=== PATIENT | male | born 1935 | race Caucasian/White ===

== ENCOUNTER 2020-04-26 18:10 | Emergency (ER) | payer MEDICARE, BC ==
[2020-04-26] MEDS ORDERED: Sodium Chloride 0.9% 2.5 ML Syringe FLUSH PRN ×2 (19:11)
[2020-04-26] MEDS ORDERED: Sodium Chloride 0.9% 10 ML Syringe FLUSH PRN (19:11)
[2020-04-26] MEDS ORDERED: Sodium Chloride 0.9% 1,000 ML IV ONE (19:11)
[2020-04-26] MEDS ORDERED: Ondansetron 4 MG/2 ML SDV IVPUSH ONE (19:13)
[2020-04-26] MEDS ORDERED: Amiodarone 150 MG in Dextrose 5% in Water 100 ML IV ONE ×2 (20:19)
[2020-04-26 20:21] LABS: BLOOD UREA NITROGEN,BUN 45 mg/dL (7.0-18.0); CARBON DIOXIDE,CO2 26.3 mmol/L (21.0-32.0); CHLORIDE,CL 102 mmol/L (98-107); GLUCOSE RANDOM 158 mg/dL (74-106); LIPASE 91 U/L (73-393); POTASSIUM,K 3.1 mmol/L (3.5-5.1); SODIUM,NA 143 mmol/L (136-148)
[2020-04-26] MEDS ORDERED: Morphine 4 MG/ML Syringe IVPUSH ONE (20:22)
[2020-04-26] MEDS ORDERED: Morphine 4 MG/ML Syringe ONE (20:23)
[2020-04-26] MEDS ORDERED: Lidocaine 4% Top Soln 50 ML Bottle MUCMEM ONE (20:24)
[2020-04-26] MEDS ORDERED: Benzocaine 20% Topical Spray UD MUCMEM ONE (21:42)
[2020-04-26] MEDS ORDERED: Iopamidol 755 Mg/ML 100 ML Bottle IVPUSH STA (21:44)
[2020-04-26] MEDS ORDERED: Lidocaine 2% Viscous Solution 15 ML Cup ONE (21:49)
--- NOTE | 2020-04-26 22:30 | CT ---
INDICATION: Abdominal pain. COMPARISON: None available TECHNIQUE: CT examination of the abdomen and pelvis was performed with the uneventful intravenous administration of 100 cc of Isovue 370 while 3 mm thick axial sections were obtained from the lung bases through the pubic symphysis. Oral contrast was not administered. Please note that all CT scans at this facility use dose modulation, iterative reconstruction, and/or weight-based dosing when appropriate to reduce radiation dose to as low as reasonably achievable. FINDINGS: There is massive dilatation of the colon extending to a moderate sized left inguinal hernia containing a nondistended loop of sigmoid colon. The colon proximal to the hernia is prominently distended, with the sigmoid colon distal to the hernia collapsed. The findings are that high grade distal colonic obstruction by the hernia. There is no sign of free air or free fluid in the abdomen or pelvis to suggest perforation. Interestingly, the small bowel is nondistended. There is also a small right inguinal hernia containing fluid and fat, but no loops of bowel. In the abdomen, the liver has a 1.4 centimeter anterior subcapsular cyst in the inferior lateral segment of the left lobe, segment 3. The rest of the liver is normal in appearance. The spleen, pancreas, and adrenals are normal in appearance. A few small cysts are present in both kidneys. The kidneys are otherwise normal in appearance. The gallbladder appears to be absent, consistent with cholecystectomy. The abdominal aorta is normal in caliber with no sign of dilatation. There is no sign of retroperitoneal mass or adenopathy. The stomach, loops of small bowel, and colon in the abdomen are normal in appearance. In the pelvis, the appendix is nonvisualized, but there is no sign of an inflammatory process in the area of the appendix. The loops of small bowel in the pelvis are normal in appearance. The prostate is normal in appearance. The urinary bladder is normal in appearance. There is no sign of pelvic or inguinal mass or adenopathy. There is moderate consolidation of the posterior lung bases associated with moderate eventration of both hemidiaphragms. There is a densely calcified granuloma in the anterior-medial subpleural right middle lobe at the lung base. The heart is mildly enlarged. Sternal wires are present from median sternotomy. There is heavy triple-vessel coronary calcification. There is mild scoliosis of the lumbar spine convex towards the left. There is mild anterior wedging of T11 through L1, mild compression fractures versus anatomic variant. There is moderate L4-5 and prominent L5-S1 disc degenerative disease. There is moderate L3-4 disc degenerative disease as well. There is moderate disc degenerative disease throughout the inferior thoracic spine. IMPRESSION: Findings of high-grade distal colonic obstruction produced by a moderate-sized left inguinal hernia containing a nondistended loop of sigmoid colon. The distal sigmoid colon is nondistended. Interestingly, the small bowel is nondistended. CT of the abdomen shows absence of the gallbladder consistent with cholecystectomy. CT of the pelvis shows a small right inguinal hernia containing fat and fluid with no loops of bowel. Moderate posterior basilar atelectasis associated with moderate eventration of both hemidiaphragms. Mild cardiomegaly. Please note that all CT scans at this facility use dose modulation, iterative reconstruction, and/or weight-based dosing when appropriate to reduce radiation dose to as low as reasonably achievable. Dictated by Familia Blas MD @ Apr 26 2020 10:18PM Signed by Dr. Familia Blas @ Apr 26 2020 10:29PM
--- NOTE | 2020-04-26 22:39 | CR ---
INDICATION: NG tube placement TECHNIQUE: Chest 2 views. COMPARISON: None FINDINGS: The heart is normal in size. The pulmonary vasculature is within normal limits. An enteric tube tip projects over the right mainstem bronchus. There are postsurgical changes of median sternotomy. Marked dilated loops of bowel are seen within the partially visualized upper abdomen. IMPRESSION: Enteric tube within the right mainstem bronchus. Marked dilated loops of bowel partially visualized within the upper abdomen. Findings were discussed with Dr. Rivera at 10:35 p.m. on 04/26/2020. The enteric tube has already been removed. Dictated by Tarsha Millard MD @ 04/26/2020 10:35:57 PM Dictated by: Tarsha Millard MD @ 04/26/2020 22:37:30 (Electronically Signed)
--- NOTE | 2020-04-26 23:08 | CR ---
Indication: Intubation Technique: Chest 1 view Comparison: April 26, 2020 at 10:09 p.m. Findings/Impression: Endotracheal tube tip terminates at the level of the crystal and should be retracted. A gastric tube tip terminates at the level of mid stomach. There are multiple air-filled loops of colon in the upper abdomen. No free air is identified. Stable cardiac size. Status post median sternotomy. Lung volumes are low. Calcified granulomata in the right lung. No pneumothorax or significant effusion. Dictated by Itzel Montague MD @ Apr 26 2020 11:04PM Signed by Dr. Itzel Montague @ Apr 26 2020 11:05PM
[2020-04-26] MEDS ORDERED: Aspirin 300 MG Supp ONE (23:11)
--- NOTE | 2020-04-26 23:12 | CR ---
INDICATION: Intubation. TECHNIQUE: Portable AP upright chest at 2209 hours. COMPARISON: 2108 hours. IMPRESSION: The enteric tube which was previously seen extending into the right mainstem bronchus been withdrawn and repositioned. The tip of the tube is now in expected location of the gastroesophageal junction. This should be advanced. An endotracheal tube is not definitely identified despite the provided history. Remainder of the exam is unchanged. Dictated by Jose Martinez MD @ 04/26/2020 11:09:58 PM Dictated by: Jose Martinez MD @ 04/26/2020 23:10:05 (Electronically Signed)
[2020-04-26] MEDS ORDERED: Aspirin 300 MG Supp RECTAL SCH (23:15)
[2020-04-26] MEDS ORDERED: Sodium Chloride 0.9% 1,000 ML IV SCH (23:15)
--- NOTE | 2020-04-26 23:20 | EDM.PDOC ---
ED HPI GENERAL MEDICAL PROBLEM - General Chief Complaint: Gastrointestinal Problem Stated Complaint: abdominal distention Time Seen by Provider: 04/26/20 20:15 - History of Present Illness INITIAL COMMENTS - FREE TEXT/NARRATIVE: History of present illness: Patient presents with a distended abdomen since yesterday. Patient comes from a intermediate we had very little report from the patient is complaining of feeling very bloated and uncomfortable with abdominal pain he did have some vomiting apparently earlier he also has noted when we get into the room to be having runs of V. tach on the monitor he states he has a hernia that had given him trouble in the past he has Parkinson's and has dementia and is a difficult historian although he is alert oriented to person and place and able to answer questions. Review of systems: As per history of present illness and below otherwise all systems reviewed and negative. Past medical history: As per history of present illness and as reviewed below otherwise noncontributory. Surgical history: As per history of present illness and as reviewed below otherwise noncontributory. Social history: No reported history of drug or alcohol abuse. Family history: As per history of present illness and as reviewed below otherwise noncontributory. Physical exam: HEENT: Atraumatic, normocephalic, pupils reactive, negative for conjunctival pallor or scleral icterus, mucous membranes moist, throat clear, neck supple, nontender, trachea midline. Lungs: Clear to auscultation, breath sounds equal bilaterally, chest nontender. Heart: S1S2, regular, negative for clicks, rubs, or JVD. Abdomen: Very distended tympanic abdomen consistent with a high-grade bowel obstruction. It is diffusely tender to palpation.. Negative for masses or hepatosplenomegaly. Negative for costovertebral tenderness. Pelvis: Stable nontender. Genitourinary: There is a right inguinal hernia present Rectal: Deferred. Extremities: Atraumatic, negative for cords or calf pain. Neurovascular unremarkable. Neuro: Awake, alert, oriented. Cranial nerves II through XII unremarkable. Cerebellum unremarkable. Motor and sensory unremarkable throughout. Exam nonfocal. Diagnostics: [] Therapeutics: [] Impression: Bowel obstruction, tachydysrhythmia [] Plan: Patient will undergo lab studies a CT down and pelvis manipulation of the hernia will be attempted medication for pain and stabilization of his ta chydysrhythmia will be done including a cardiac work-up. [] Definitive disposition and diagnosis as appropriate pending reevaluation and review of above. Abdomen Pain Score (Numeric/FACES): 2 - Related Data Allergies Allergy/AdvReac Type Severity Reaction Status Date / Time atorvastatin Allergy Other Verified 04/26/20 18:44 fluticasone [From Flonase] Allergy Other Verified 04/26/20 18:44 fluvastatin Allergy Other Verified 04/26/20 18:44 niacin Allergy Muscle Verified 04/26/20 18:44 Weakness simvastatin Allergy Chest Pain Verified 04/26/20 18:44 tamsulosin Allergy Other Verified 04/26/20 18:44 Home Meds: Home Meds Latanoprost [Xalatan 0.005% Ophth Soln] 1 drop EYEBOTH BEDTIME 09/26/16 [History] Lisinopril 40 mg PO DAILY 09/26/16 [History] Metoprolol Tartrate 12.5 mg PO BID 09/26/16 [History] Multivitamin [Multivitamins] 1 each PO DAILY 09/26/16 [History] Nitroglycerin 9 mg PO Q12HR 09/26/16 [History] Nitroglycerin [Nitrostat] 0.4 mg SL Q5M PRN MDD 3 TABLETS 09/26/16 [History] amLODIPine Besylate [Amlodipine Besylate] 5 mg PO DAILY 09/26/16 [History] Lovastatin 20 mg PO BEDTIME 09/28/16 [History] Acetaminophen [Pain Reliever] 500 mg PO Q4H PRN 11/22/16 [History] Aspirin [Ecotrin EC] 81 mg PO DAILY 11/22/16 [History] Bisacodyl [Biscolax] 10 mg RC Q24H PRN 11/22/16 [History] Calcium Carbonate/Vitamin D3 [Calcium 600 + Vit D Tablet] 1 tab PO DAILY 11/22/16 [History] Carboxymethylcellulose Sodium [Refresh Tears] 1 drop EYEBOTH QID PRN 11/22/16 [History] Finasteride 5 mg PO BEDTIME 11/22/16 [History] Levothyroxine 37.5 mcg PO ACBREAKFAST 11/22/16 [History] Mag Hydrox/Aluminum Hyd/Simeth [Maalox Maximum Strength Susp] 30 ml PO ASDIRECTED PRN 11/22/16 [History] Magnesium Hydroxide [Milk of Magnesia] 30 ml PO DAILY PRN 11/22/16 [History] Na Phos,M-B/Na Phos,DI-B [Fleet Enema] 133 ml RC ASDIRECTED PRN 11/22/16 [History] Phenyleph/Shark Tuyet.oil/Mo/Pet [Hemorrhoidal Ointment] 1 applic RC ASDIRECTED PRN 11/22/16 [History] Psyllium Husk [Metamucil] 2 tbsp PO BID 11/22/16 [History] Sennosides [Senna] 8.6 mg PO BID 11/22/16 [History] polyethylene glycoL 3350 [Miralax] 17 gm PO DAILY 11/22/16 [History] witch Jimym [Tucks] 1 each TP ASDIRECTED PRN 11/22/16 [History] Past Medical History HEENT History: Reports: Glaucoma Cardiovascular History: Reports: Hypertension, Stents Respiratory History: Reports: None Gastrointestinal History: Reports: Chronic Constipation Genitourinary History: Reports: Prostate Disorder Musculoskeletal History: Reports: None Neurological History: Reports: Other (See Below) Other Neuro History: Confusion Psychiatric History: Reports: Anxiety, Depression Endocrine/Metabolic History: Reports: Hypothyroidism Hematologic History: Reports: None Oncologic (Cancer) History: Reports: Prostate Dermatologic History: Reports: None - Infectious Disease History Infectious Disease History: Reports: None - Past Surgical History Cardiovascular Surgical History: Reports: Coronary Artery Bypass Social & Family History - Family History Family Medical History: Unobtainable - Tobacco Use Smoking Status *Q: Never Smoker Second Hand Smoke Exposure: No - Caffeine Use Caffeine Use: Reports: None - Recreational Drug Use Recreational Drug Use: No ED ROS GENERAL - Review of Systems Review Of Systems: See Below ED EXAM, GENERAL - Physical Exam Exam: See Below EKG INTERPRETATION EKG Interpretation Comments: Normal sinus rhythm rate of 80 bpm wide-complex QRS with ventricular trigeminy nonspecific ST-T changes grossly abnormal EKG. there are several areas of inconsistent ST segment elevation but no clear reciprocal change Course - Vital Signs Text/Narrative:: Patient was initially brought back after being in the waiting room for some time on quick examination it was noted when nursing called me and that he was having runs of V. tach. We initiated a bolus dose of amiodarone and this seemed to stabilize. On gross exam it was noted that he had a widely distended abdomen orders for pain medication and NG tube were obtained a CT of the abdomen was obtained owing a left inguinal hernia as a cause of high-grade bowel obstruction. Patient was soon manipulated and the hernia was palpably reduced however the abdomen did not significantly reduce and distention immediately. I discussed the complications that the patient was having with his sister who is power of erisa attorney as well as with the patient and they would like intervention if necessary for both the heart condition and the potential surgical problem with his bowel obstruction. Discussed the case with Dr. Ash at approximately 10:30 PM I then subsequently discussed the case with Dr. Lake at 10:40 PM and they agree that with these complications the patient should be transferred to [place]. At 11 PM this case with Dr. Dee at [place] [facility] they will accept the patient. Critical care 38 minutes for acute bowel obstruction with unstable vital signs and abnormal ventricular dysrhythmias. This included initial assessment initiation of antidysrhythmic's also included reassessment of the patient fluid resuscitation maintenance fluids reassessment of patient multiple conversations with consultants and family members does not include separately billable procedures. Last Recorded V/S: Last Vital Signs Temp 37.2 C 04/26/20 18:38 Pulse 80 04/26/20 18:38 Resp 20 04/26/20 18:38 BP 153/91 H 04/26/20 18:38 Pulse Ox 94 L 04/26/20 18:38 - Orders/Labs/Meds Orders: Active Orders 24 hr Category Date Time Status EKG 12 Lead [EKG Documentation Completion] [RC] STAT Care 04/26/20 19:12 Active Gastrointestinal Tube Mgmt [RC] ASDIRECTED Care 04/26/20 20:23 Active CORONAVIRUS COVID-19 RAPID [MOLEC] Stat Lab 04/26/20 22:39 Received UA RFX MANISH AND CULT IF INDIC [URIN] Stat Lab 04/26/20 19:11 Ordered Amiodarone In Dextrose,Iso-Osm [Nexterone in Dextrose Med 04/26/20 23:15 Active 360 MG/200 ML] 360 mg in 200 ml IV ASDIRECTED Aspirin Med 04/26/20 23:15 Active 300 mg RECTAL DAILY Sodium Chloride 0.9% [Normal Saline] 1,000 ml Med 04/26/20 23:15 Active IV ASDIRECTED Sodium Chloride 0.9% [Saline Flush] Med 04/26/20 19:11 Active 10 ml FLUSH ASDIRECTED PRN Sodium Chloride 0.9% [Saline Flush] [facility] 04/26/20 19:11 Active 2.5 ml FLUSH ASDIRECTED PRN Sodium Chloride 0.9% [Saline Flush] [facility] 04/26/20 19:11 Active 2.5 ml FLUSH ASDIRECTED PRN NG [Nasogastric Orogastric Tube Insertion] [OM.PC] Stat Ot 04/26/20 20:22 Ordered Saline Lock Insert [OM.PC] Stat [facility] 04/26/20 19:11 Ordered Medication Orders Aspirin (Aspirin) 300 mg RECTAL DAILY REINALDO Amiodarone HCl/Dextrose (Nexterone In Dextrose 360 Mg/200 Ml) 360 mg in 200 mls @ 33.333 mls/hr IV ASDIRECTED REINALDO; Protocol Sodium Chloride (Normal Saline) 1,000 mls @ 100 mls/hr IV ASDIRECTED REINALDO Sodium Chloride (Saline Flush) 2.5 ml FLUSH ASDIRECTED PRN PRN Reason: Keep Vein Open Sodium Chloride (Saline Flush) 10 ml FLUSH ASDIRECTED PRN PRN Reason: Keep Vein Open Sodium Chloride (Saline Flush) 2.5 ml FLUSH ASDIRECTED PRN PRN Reason: Keep Vein Open Labs: Laboratory Tests 04/26/20 04/26/20 04/26/20 Range/Units 19:50 19:50 22:52 WBC 11.20 H (4.0-11.0) K/uL RBC 4.45 L (4.50-5.90) M/uL Hgb 13.7 (13.0-17.0) g/dL Hct 41.0 (38.0-50.0) % MCV 92.1 (80.0-98.0) fL MCH 30.8 (27.0-32.0) pg MCHC 33.4 (31.0-37.0) g/dL RDW Std Deviation 43.2 (28.0-62.0) fl RDW Coeff of [place]ney 13 (11.0-15.0) % Plt Count 162 (150-400) K/uL MPV 10.80 (7.40-12.00) fL Neut % (Auto) 87.1 H (48.0-80.0) % Lymph % (Auto) 6.1 L (16.0-40.0) % [place] % (Auto) 6.8 (0.0-15.0) % Eos % (Auto) 0.0 (0.0-7.0) % Baso % (Auto) 0.0 (0.0-1.5) % Neut # (Auto) 9.8 H (1.4-5.7) K/uL Lymph # (Auto) 0.7 (0.6-2.4) K/uL [place] # (Auto) 0.8 (0.0-0.8) K/uL Eos # (Auto) 0.0 (0.0-0.7) K/uL Baso # (Auto) 0.0 (0.0-0.1) K/uL Nucleated RBC % 0.0 /100WBC Nucleated RBCs # 0 K/uL Lactate 1.9 (0.20-2.00) mmol/L Sodium 143 (136-148) mmol/L Potassium 3.1 L (3.5-5.1) mmol/L Chloride 102 (98-107) mmol/L Carbon Dioxide 26.3 (21.0-32.0) mmol/L BUN 45 H (7.0-18.0) mg/dL Creatinine 1.1 (0.8-1.3) mg/dL Est Cr Clr Drug Dosing 38.30 mL/min Estimated GFR (MDRD) > 60.0 ml/min Glucose 158 H (74-106) mg/dL Calcium 11.7 H (8.5-10.1) mg/dL Total Bilirubin 1.8 H (0.2-1.0) mg/dL AST 39 H (15-37) IU/L ALT 28 (14-63) IU/L Alkaline Phosphatase 94 (46-116) U/L Troponin I 0.154 H* (0.000-0.056) ng/mL Total Protein 8.1 (6.4-8.2) g/dL Albumin 5.0 (3.4-5.0) g/dL Globulin 3.1 (2.6-4.0) g/dL Albumin/Globulin Ratio 1.6 (0.9-1.6) Lipase 91 (73-393) U/L Meds: Medications Generic Name Dose Route Start Last Admin Trade Name Freq PRN Reason Stop Dose Admin Aspirin 300 mg 04/26/20 23:15 Aspirin RECTAL DAILY REINALDO Amiodarone HCl/Dextrose 360 mg in 200 mls @ 33.333 mls/hr 04/26/20 23:15 Nexterone In Dextrose 360 Mg/200 Ml IV ASDIRECTED REINALDO Protocol 1 MG/MIN Sodium Chloride 1,000 mls @ 100 mls/hr 04/26/20 23:15 Normal Saline IV ASDIRECTED REINALDO Sodium Chloride 2.5 ml 04/26/20 19:11 Saline Flush FLUSH ASDIRECTED PRN Keep Vein Open Sodium Chloride 10 ml 04/26/20 19:11 Saline Flush FLUSH ASDIRECTED PRN Keep Vein Open Sodium Chloride 2.5 ml 04/26/20 19:11 Saline Flush FLUSH ASDIRECTED PRN Keep Vein Open Discontinued Medications Generic Name Dose Route Start Last Admin Trade Name Sai PRN Reason Stop Dose Admin Aspirin Confirm 04/26/20 23:11 Aspirin Administered 04/26/20 23:12 Dose 300 mg .ROUTE .STK-MED ONE Benzocaine Confirm 04/26/20 21:42 Hurricaine One 20% Administered 04/26/20 21:43 Dose 2 each MUCMEM .STK-MED ONE Sodium Chloride 1,000 mls @ 999 mls/hr 04/26/20 19:11 04/26/20 20:09 Normal Saline IV 04/26/20 20:11 999 mls/hr BOLUS ONE Administration Amiodarone HCl 150 mg/ 103 mls @ 600 mls/hr 04/26/20 20:19 Dextrose/Water IV 04/26/20 20:29 .BOLUS ONE Iopamidol 100 ml 04/26/20 21:44 04/26/20 21:45 Isovue-370 (76%) IVPUSH 04/26/20 21:45 100 ml ONETIME STA Administration Lidocaine HCl 10 ml 04/26/20 20:24 Xylocaine 4% Top Soln MUCMEM 04/26/20 20:25 ONETIME ONE Lidocaine HCl Confirm 04/26/20 21:49 Xylocaine 2% Viscous Administered 04/26/20 21:50 Dose 15 ml .ROUTE .STK-MED ONE Morphine Sulfate 4 mg 04/26/20 20:22 04/26/20 20:37 Morphine IVPUSH 04/26/20 20:23 4 mg ONETIME ONE Administration Morphine Sulfate Confirm 04/26/20 20:23 04/26/20 20:37 Morphine Administered 04/26/20 20:24 Not Given Dose 4 mg .ROUTE .STK-MED ONE Ondansetron HCl 4 mg 04/26/20 19:13 04/26/20 20:09 Zofran IVPUSH 04/26/20 19:14 4 mg ONETIME ONE Administration Departure - Departure Time of Disposition: 23:21 Disposition: DC/Tfer to Acute Hospital 02 Condition: Fair Clinical Impression: Bowel obstruction, Inguinal hernia, Ventricular tachycardia, Elevated troponin - Discharge Information *PRESCRIPTION DRUG MONITORING PROGRAM REVIEWED*: Not Applicable *COPY OF PRESCRIPTION DRUG MONITORING REPORT IN PATIENT [place]: Not Applicable Instructions: Inguinal Hernia, Adult, [id number], Bowel Obstruction, [id number] Referrals: PCP,None [Primary Care Provider] - Forms: ED Department Discharge Sepsis Event Note (ED) - Evaluation Sepsis Screening Result: No Definite Risk - Focused Exam Vital Signs: Vital Signs Temp Pulse Resp BP Pulse Ox 04/26/20 18:38 37.2 C 80 20 153/91 H 94 L - My Orders Last 24 Hours: My Active Orders 04/26/20 19:11 UA RFX MANISH AND CULT IF INDIC [URIN] Stat Sodium Chloride 0.9% [Saline Flush] 10 ml FLUSH ASDIRECTED PRN Sodium Chloride 0.9% [Saline Flush] 2.5 ml FLUSH ASDIRECTED PRN Sodium Chloride 0.9% [Saline Flush] 2.5 ml FLUSH ASDIRECTED PRN Saline Lock Insert [OM.PC] Stat 04/26/20 19:12 EKG 12 Lead [EKG Documentation Completion] [RC] STAT 04/26/20 20:22 NG [Nasogastric Orogastric Tube Insertion] [OM.PC] Stat 04/26/20 20:23 Gastrointestinal Tube Mgmt [RC] ASDIRECTED 04/26/20 22:39 CORONAVIRUS COVID-19 RAPID [MOLEC] Stat 04/26/20 23:15 Amiodarone In Dextrose,Iso-Osm [Nexterone in Dextrose 360 MG/200 ML] 360 mg in 200 ml IV ASDIRECTED Aspirin 300 mg RECTAL DAILY Sodium Chloride 0.9% [Normal Saline] 1,000 ml IV ASDIRECTED - Assessment/Plan Last 24 Hours: My Active Orders 04/26/20 19:11 UA RFX MANISH AND CULT IF INDIC [URIN] Stat Sodium Chloride 0.9% [Saline Flush] 10 ml FLUSH ASDIRECTED PRN Sodium Chloride 0.9% [Saline Flush] 2.5 ml FLUSH ASDIRECTED PRN Sodium Chloride 0.9% [Saline Flush] 2.5 ml FLUSH ASDIRECTED PRN Saline Lock Insert [OM.PC] Stat 04/26/20 19:12 EKG 12 Lead [EKG Documentation Completion] [RC] STAT 04/26/20 20:22 NG [Nasogastric Orogastric Tube Insertion] [OM.PC] Stat 04/26/20 20:23 Gastrointestinal Tube Mgmt [RC] ASDIRECTED 04/26/20 22:39 CORONAVIRUS COVID-19 RAPID [MOLEC] Stat 04/26/20 23:15 Amiodarone In Dextrose,Iso-Osm [Nexterone in Dextrose 360 MG/200 ML] 360 mg in 200 ml IV ASDIRECTED Aspirin 300 mg RECTAL DAILY Sodium Chloride 0.9% [Normal Saline] 1,000 ml IV ASDIRECTED
[2020-04-26] MEDS ORDERED: Aspirin 300 MG Supp RECTAL STA (23:27)
[2020-04-26 23:46] VITALS: BP 184/102; PULSE 68
[2020-04-26] MEDS: Amiodarone 150 MG in Dextrose 5% in Water 100 ML IV ONE ×4 (23:47→23:49)
== END 2020-04-27 00:28 ==
LOC: MW.ED 18:10
DX: K56.609 Unspecified intestinal obstruction, unspecified as to partial versus complete obstruction (principal); K40.90 Unilateral inguinal hernia, without obstruction or gangrene, not specified as recurrent; R00.0 Tachycardia, unspecified; R79.89 Other specified abnormal findings of blood chemistry; I10 Essential (primary) hypertension; F41.9 Anxiety disorder, unspecified; F32.9 Major depressive disorder, single episode, unspecified; E03.9 Hypothyroidism, unspecified; Z20.828 Contact with and (suspected) exposure to other viral communicable diseases; Z88.8 Allergy status to other drugs, medicaments and biological substances; Z79.899 Other long term (current) drug therapy; Z79.82 Long term (current) use of aspirin
CPT/HCPCS: 43752; 51702; 71045; 74177; 80053; 81001; 83605; 83690; 84484; 85025; 93005; 96361; 96365; 96375; 96376; 99285; A9270; J0282; J2270; J2405; J7030; J7060; Q9967; U0002; 99291

== ENCOUNTER 2020-06-29 20:39 | Emergency (ER) | payer MEDICARE, BC, OTHER ==
[2020-06-29] MEDS ORDERED: Sodium Chloride 0.9% 10 ML Syringe FLUSH PRN (20:50)
[2020-06-29] MEDS ORDERED: Ondansetron 4 MG/2 ML SDV IVPUSH ONE (20:50)
[2020-06-29] MEDS ORDERED: Sodium Chloride 0.9% 2.5 ML Syringe FLUSH PRN (20:50)
--- NOTE | 2020-06-29 21:11 | EDM.PDOC ---
ED HPI GENERAL MEDICAL PROBLEM - General Chief Complaint: Abdominal Pain Stated Complaint: REFER FROM TOMAS Time Seen by Provider: 06/29/20 20:51 - History of Present Illness INITIAL COMMENTS - FREE TEXT/NARRATIVE: 85-year-old male presenting with abdominal pain and distention. The patient does have a history of a right inguinal hernia that led to a large bowel obstruction in April of this year. At that time the patient also had runs of ventricular tachycardia and he was loaded with amiodarone and transferred to [facility]. His sister and POA is at the bedside and she reports that they did a colonoscopy but that he did not have an abdominal surgery. On chart review it appears that the inguinal hernia was reduced in the ER prior to transfer. Patient is now complaining of abdominal pain he has significant dementia so difficult to determine how long this is been going on but his sister reports that when she last talked to him 2 days ago everything seemed fine. He denies fever or complaints he denies exacerbating or alleviating factors or other associated symptoms. abdominal Pain Score (Numeric/FACES): 5 - Related Data Allergies Allergy/AdvReac Type Severity Reaction Status Date / Time atorvastatin Allergy Other Verified 04/26/20 18:44 fluticasone [From Flonase] Allergy Other Verified 04/26/20 18:44 fluvastatin Allergy Other Verified 04/26/20 18:44 niacin Allergy Muscle Verified 04/26/20 18:44 Weakness simvastatin Allergy Chest Pain Verified 04/26/20 18:44 tamsulosin Allergy Other Verified 04/26/20 18:44 Home Meds: Home Meds Latanoprost [Xalatan 0.005% Ophth Soln] 1 drop EYEBOTH BEDTIME 09/26/16 [History] Lisinopril 40 mg PO DAILY 09/26/16 [History] Metoprolol Tartrate 12.5 mg PO BID 09/26/16 [History] Multivitamin [Multivitamins] 1 each PO DAILY 09/26/16 [History] Nitroglycerin 9 mg PO Q12HR 09/26/16 [History] Nitroglycerin [Nitrostat] 0.4 mg SL Q5M PRN MDD 3 TABLETS 09/26/16 [History] amLODIPine Besylate [Amlodipine Besylate] 5 mg PO DAILY 09/26/16 [History] Lovastatin 40 mg PO BEDTIME 09/28/16 [History] Acetaminophen [Pain Reliever] 500 mg PO Q4H PRN 11/22/16 [History] Aspirin [Ecotrin EC] 81 mg PO DAILY 11/22/16 [History] Bisacodyl [Biscolax] 10 mg RC Q24H PRN 11/22/16 [History] Calcium Carbonate/Vitamin D3 [Calcium 600 + Vit D Tablet] 1 tab PO DAILY 11/22/16 [History] Carboxymethylcellulose Sodium [Refresh Tears] 1 drop EYEBOTH QID PRN 11/22/16 [History] Finasteride 5 mg PO BEDTIME 11/22/16 [History] Levothyroxine 37.5 mcg PO ACBREAKFAST 11/22/16 [History] Mag Hydrox/Aluminum Hyd/Simeth [Maalox Maximum Strength Susp] 30 ml PO ASDIRECTED PRN 11/22/16 [History] Magnesium Hydroxide [Milk of Magnesia] 30 ml PO DAILY PRN 11/22/16 [History] Na Phos,M-B/Na Phos,DI-B [Fleet Enema] 133 ml RC ASDIRECTED PRN 11/22/16 [History] Psyllium Husk [Metamucil] 2 tbsp PO BID 11/22/16 [History] polyethylene glycoL 3350 [Miralax] 17 gm PO DAILY 11/22/16 [History] witch Jimmy [Tucks] 1 each TP ASDIRECTED PRN 11/22/16 [History] Carbamide Peroxide [Debrox] 1 drop EARBOTH ASDIRECTED PRN 06/29/20 [History] Clopidogrel Bisulfate [Plavix] 75 mg PO DAILY 06/29/20 [History] Donepezil HCl 10 mg PO DAILY 06/29/20 [History] Loperamide [Imodium] 2 mg PO ASDIRECTED PRN 06/29/20 [History] Non-Formulary Medication [NF Drug] 06/29/20 [History] Past Medical History HEENT History: Reports: Glaucoma Cardiovascular History: Reports: Hypertension, Stents Respiratory History: Reports: None Gastrointestinal History: Reports: Chronic Constipation, Other (See Below) Other Gastrointestinal History: bowel obstruction Genitourinary History: Reports: Prostate Disorder Musculoskeletal History: Reports: None Neurological History: Reports: Other (See Below) Other Neuro History: Confusion Psychiatric History: Reports: Anxiety, Depression Endocrine/Metabolic History: Reports: Hypothyroidism Hematologic History: Reports: None Oncologic (Cancer) History: Reports: Prostate Dermatologic History: Reports: None - Infectious Disease History Infectious Disease History: Reports: Chicken Pox, Measles, Mumps - Past Surgical History Cardiovascular Surgical History: Reports: Coronary Artery Bypass Social & Family History - Family History Family Medical History: Unobtainable - Tobacco Use Smoking Status *Q: Never Smoker - Caffeine Use Caffeine Use: Reports: None - Recreational Drug Use Recreational Drug Use: No ED ROS GENERAL - Review of Systems Review Of Systems: See Below Free Text/Narrative/Comment: General: No fever. Skin: No rash. Eyes: No vision problems. ENT: No sore throat. Neck: No neck stiffness. Respiratory: No shortness of breath. Cardiac: No chest pain. Gastrointestinal: Per HPI Urinary: No dysuria. Musculoskeletal: No myalgias/arthralgias. Neurologic: No headache. ED EXAM, GENERAL - Physical Exam Exam: See Below Free Text/Narrative:: General Appearance: No acute distress, appears comfortable and nontoxic Skin: No rash HEENT: Normocephalic/atraumatic, sclera anicteric, mucous membranes moist Neck: Normal range of motion Chest and Lungs: Bilateral breath sounds, clear to auscultation Cardiovascular: Regular rate and rhythm, no murmur Abdomen: Abdomen is tender in the periumbilical region in the bilateral lower quadrants as well as somewhat distended Back: Normal Musculoskeletal: Trace pitting edema to the ankles bilaterally edema or tenderness Neurologic: Awake, alert, no obvious deficits, moving all extremities Psychiatric: Appropriate, cooperative Course - Vital Signs Last Recorded V/S: Last Vital Signs Temp 98.7 F 06/30/20 01:01 Pulse 69 06/30/20 01:01 Resp 20 06/30/20 01:01 BP 145/72 H 06/30/20 01:01 Pulse Ox 94 L 06/30/20 01:01 - Orders/Labs/Meds Orders: Active Orders 24 hr Category Date Time Status CORONAVIRUS COVID-19 PCR PHL Stat Lab 06/29/20 23:51 Received Sodium Chloride 0.9% [Saline Flush] Med 06/29/20 20:50 Active 10 ml FLUSH ASDIRECTED PRN Sodium Chloride 0.9% [Saline Flush] Med 06/29/20 20:50 Active 2.5 ml FLUSH ASDIRECTED PRN Saline Lock Insert [OM.PC] Stat Oth 06/29/20 20:50 Ordered Medication Orders Sodium Chloride (Saline Flush) 10 ml FLUSH ASDIRECTED PRN PRN Reason: Keep Vein Open Sodium Chloride (Saline Flush) 2.5 ml FLUSH ASDIRECTED PRN PRN Reason: Keep Vein Open Labs: Laboratory Tests 06/29/20 06/29/20 06/29/20 Range/Units 21:11 21:11 21:11 WBC 9.41 (4.0-11.0) K/uL RBC 4.12 L (4.50-5.90) M/uL Hgb 12.6 L (13.0-17.0) g/dL Hct 38.1 (38.0-50.0) % MCV 92.5 (80.0-98.0) fL MCH 30.6 (27.0-32.0) pg MCHC 33.1 (31.0-37.0) g/dL RDW Std Deviation 42.9 (28.0-62.0) fl RDW Coeff of Cortney 13 (11.0-15.0) % Plt Count 130 L (150-400) K/uL MPV 10.00 (7.40-12.00) fL Neut % (Auto) 88.4 H (48.0-80.0) % Lymph % (Auto) 6.7 L (16.0-40.0) % Starke % (Auto) 4.6 (0.0-15.0) % Eos % (Auto) 0.2 (0.0-7.0) % Baso % (Auto) 0.1 (0.0-1.5) % Neut # (Auto) 8.3 H (1.4-5.7) K/uL Lymph # (Auto) 0.6 (0.6-2.4) K/uL Starke # (Auto) 0.4 (0.0-0.8) K/uL Eos # (Auto) 0.0 (0.0-0.7) K/uL Baso # (Auto) 0.0 (0.0-0.1) K/uL Nucleated RBC % 0.0 /100WBC Nucleated RBCs # 0 K/uL Lactate 1.4 (0.20-2.00) mmol/L Sodium 140 (136-148) mmol/L Potassium 3.2 L (3.5-5.1) mmol/L Chloride 103 (98-107) mmol/L Carbon Dioxide 27.4 (21.0-32.0) mmol/L BUN 26 H (7.0-18.0) mg/dL Creatinine 0.9 (0.8-1.3) mg/dL Est Cr Clr Drug Dosing TNP Estimated GFR (MDRD) > 60.0 ml/min Glucose 124 H (74-106) mg/dL Calcium 8.9 (8.5-10.1) mg/dL Magnesium 1.9 (1.8-2.4) mg/dL Total Bilirubin 1.5 H (0.2-1.0) mg/dL AST 28 (15-37) IU/L ALT 38 (14-63) IU/L Alkaline Phosphatase 85 (46-116) U/L Total Protein 6.7 (6.4-8.2) g/dL Albumin 4.2 (3.4-5.0) g/dL Globulin 2.5 L (2.6-4.0) g/dL Albumin/Globulin Ratio 1.7 H (0.9-1.6) Lipase 98 (73-393) U/L SARS CoV-2 RNA Rapid TIFFANIE (NEGATIVE) 06/29/20 Range/Units 23:51 WBC (4.0-11.0) K/uL RBC (4.50-5.90) M/uL Hgb (13.0-17.0) g/dL Hct (38.0-50.0) % MCV (80.0-98.0) fL MCH (27.0-32.0) pg MCHC (31.0-37.0) g/dL RDW Std Deviation (28.0-62.0) fl RDW Coeff of Cortney (11.0-15.0) % Plt Count (150-400) K/uL MPV (7.40-12.00) fL Neut % (Auto) (48.0-80.0) % Lymph % (Auto) (16.0-40.0) % Starke % (Auto) (0.0-15.0) % Eos % (Auto) (0.0-7.0) % Baso % (Auto) (0.0-1.5) % Neut # (Auto) (1.4-5.7) K/uL Lymph # (Auto) (0.6-2.4) K/uL Starke # (Auto) (0.0-0.8) K/uL Eos # (Auto) (0.0-0.7) K/uL Baso # (Auto) (0.0-0.1) K/uL Nucleated RBC % /100WBC Nucleated RBCs # K/uL Lactate (0.20-2.00) mmol/L Sodium (136-148) mmol/L Potassium (3.5-5.1) mmol/L Chloride (98-107) mmol/L Carbon Dioxide (21.0-32.0) mmol/L BUN (7.0-18.0) mg/dL Creatinine (0.8-1.3) mg/dL Est Cr Clr Drug Dosing Estimated GFR (MDRD) ml/min Glucose (74-106) mg/dL Calcium (8.5-10.1) mg/dL Magnesium (1.8-2.4) mg/dL Total Bilirubin (0.2-1.0) mg/dL AST (15-37) IU/L ALT (14-63) IU/L Alkaline Phosphatase (46-116) U/L Total Protein (6.4-8.2) g/dL Albumin (3.4-5.0) g/dL Globulin (2.6-4.0) g/dL Albumin/Globulin Ratio (0.9-1.6) Lipase (73-393) U/L SARS CoV-2 RNA Rapid TIFFANIE NEGATIVE (NEGATIVE) Meds: Medications Generic Name Dose Route Start Last Admin Trade Name Freq PRN Reason Stop Dose Admin Sodium Chloride 10 ml 06/29/20 20:50 Saline Flush FLUSH ASDIRECTED PRN Keep Vein Open Sodium Chloride 2.5 ml 06/29/20 20:50 Saline Flush FLUSH ASDIRECTED PRN Keep Vein Open Discontinued Medications Generic Name Dose Route Start Last Admin Trade Name Freq PRN Reason Stop Dose Admin Iopamidol 100 ml 06/29/20 23:19 06/29/20 23:21 Isovue Multipack-370 (76%) IVPUSH 06/29/20 23:20 100 ml ONETIME STA Administration Morphine Sulfate 4 mg 06/29/20 20:50 06/29/20 21:17 Morphine IM 06/29/20 20:51 Not Given ONETIME ONE Morphine Sulfate 4 mg 06/29/20 21:16 06/29/20 21:18 Morphine IVPUSH 06/29/20 21:17 4 mg ONETIME ONE Administration Ondansetron HCl 4 mg 06/29/20 20:50 06/29/20 21:12 Zofran IVPUSH 06/29/20 20:51 4 mg ONETIME ONE Administration Departure - Departure Time of Disposition: 00:09 Disposition: DC/Tfer to [facility] 02 Condition: Good Clinical Impression: Sigmoid volvulus - Discharge Information *PRESCRIPTION DRUG MONITORING PROGRAM REVIEWED*: Not Applicable *COPY OF PRESCRIPTION DRUG MONITORING REPORT IN PATIENT RILEY: Not Applicable Referrals: Tomas Srinivasan [Primary Care Provider] - Forms: ED Department Discharge Sepsis Event Note (ED) - Evaluation Sepsis Screening Result: No Definite Risk - Focused Exam Vital Signs: Vital Signs Temp Pulse Resp BP Pulse Ox 06/30/20 01:01 98.7 F 69 20 145/72 H 94 L 06/30/20 00:34 80 16 134/75 92 L 06/30/20 00:04 78 145/73 H 94 L 06/29/20 23:26 65 146/77 H 95 06/29/20 22:06 74 20 150/71 H 96 06/29/20 21:30 59 L 18 138/73 96 06/29/20 21:16 59 L 20 138/73 94 L 06/29/20 20:50 98.4 F 69 20 178/92 H 95 - My Orders Last 24 Hours: My Active Orders 06/29/20 20:50 Sodium Chloride 0.9% [Saline Flush] 10 ml FLUSH ASDIRECTED PRN Sodium Chloride 0.9% [Saline Flush] 2.5 ml FLUSH ASDIRECTED PRN Saline Lock Insert [OM.PC] Stat 06/29/20 23:51 CORONAVIRUS COVID-19 PCR PHL Stat - Assessment/Plan Last 24 Hours: My Active Orders 06/29/20 20:50 Sodium Chloride 0.9% [Saline Flush] 10 ml FLUSH ASDIRECTED PRN Sodium Chloride 0.9% [Saline Flush] 2.5 ml FLUSH ASDIRECTED PRN Saline Lock Insert [OM.PC] Stat 06/29/20 23:51 CORONAVIRUS COVID-19 PCR PHL Stat Assessment:: 85-year-old male presenting with signs and symptoms concerning for recurrent large bowel obstruction labs including lactic acid pending CT ordered if there is a inguinal hernia will attempt reduction. 2131: Patient's right inguinal hernia was easily and completely reduced at the bedside other abdominal distention and exam unchanged continue to await labs and CT 2344: Pt discussed with Dr. Vargas of radiology. Pt with severe colonic obstruction 2/2 sigmoid volvulus. He does have the left inguinal hernia that has mostly small bowel. However, that is not causing any obstruction or other acute issue at this time. Given the need for urgent / emergent colonoscopy for reduction of sigmoid volvulus and our inability to provide that service here (per nursing and plumbing warehouse helper) will investigate the possibility of transfer to [place]. Pt discussed with Dr. Fox in the [facility] ED and patient accepted for transfer. Pt is felt stable for ground transfer. I as unable to talk to the surgeon at that time. However, the transfer center confirmed that we could proceed with transfer.
[2020-06-29] MEDS: Morphine 4 MG/ML Syringe IM ONE ×2 (21:12→21:17)
[2020-06-29] MEDS ORDERED: Morphine 4 MG/ML Syringe IVPUSH ONE (21:16)
[2020-06-29 21:52] LABS: BLOOD UREA NITROGEN,BUN 26 mg/dL (7.0-18.0); CARBON DIOXIDE,CO2 27.4 mmol/L (21.0-32.0); CHLORIDE,CL 103 mmol/L (98-107); GLUCOSE RANDOM 124 mg/dL (74-106); LIPASE 98 U/L (73-393); POTASSIUM,K 3.2 mmol/L (3.5-5.1); SODIUM,NA 140 mmol/L (136-148)
[2020-06-29] MEDS ORDERED: Iopamidol 755 MG/ML 500 ML Multipack Bottle IVPUSH STA (23:19)
--- NOTE | 2020-06-29 23:47 | CT ---
INDICATION: Abdominal distension TECHNIQUE: CT Abdomen and pelvis with i.v. contrast. Coronal and sagittal reformats were obtained. CONTRAST: 100 mL Isovue 370 COMPARISON: 04/26/2020 FINDINGS: Lower chest: Discoid atelectasis is present in the left lower lobe. Severe atherosclerotic calcifications are noted in the coronary arteries. Liver: There is a 1.6 cm cyst present in the left liver dome. Spleen: Unremarkable. Pancreas: Unremarkable. Gallbladder: Unremarkable. Kidney: Multiple bilateral cortical renal cysts are present measuring up to 1.2 cm. There is a exophytic lesion of indeterminate density seen in the upper pole of the left kidney measuring 1 cm without interval change. Adrenal: Unremarkable. Bowel: Severe diffuse colonic distention is present measuring 7.4 cm extending to a sigmoid volvulus within the pelvis, best seen on images 95-100. There is a moderate-sized left indirect inguinal hernia present containing multiple loops of small bowel and a small amount of ascites, similar to prior exam. The appendix is not identified. A small periumbilical hernia is present containing a small amount of ascites. Vascular: Unremarkable. Lymph: Unremarkable. Peritoneum: Unremarkable. No pneumoperitoneum is seen. A small right inguinal hernia containing ascites is noted. Pelvis: Unremarkable. Soft tissue: Unremarkable. Bone: Unremarkable for age. IMPRESSIONS: 1. Severe diffuse colonic distention is present measuring 7.4 cm extending to a sigmoid volvulus within the pelvis, best seen on images 95-100. 2. There is a moderate-sized left indirect inguinal hernia present containing multiple loops of small bowel and a small amount of ascites, similar to prior exam. No small bowel obstruction is identified. 3. There is a exophytic lesion of indeterminate density seen in the upper pole of the left kidney measuring 1 cm without interval change. Continued imaging surveillance is recommended. 4. Severe atherosclerotic calcifications are noted in the coronary arteries. The findings were discussed with Dr. Buitrago at 11:45 PM. Dictated by Elio Vargas MD @ 06/29/2020 11:45:53 PM Please note that all CT scans at this facility use dose modulation, iterative reconstruction, and/or weight-based dosing when appropriate to reduce radiation dose to as low as reasonably achievable. Dictated by: Elio Vargas MD @ 06/29/2020 23:46:19 (Electronically Signed)
[2020-06-30 01:02] VITALS: BP 145/72; PULSE 69
== END 2020-06-30 01:00 ==
LOC: MW.ED 20:39
DX: K56.2 Volvulus (principal); I10 Essential (primary) hypertension; E03.9 Hypothyroidism, unspecified; Z88.8 Allergy status to other drugs, medicaments and biological substances; Z79.899 Other long term (current) drug therapy; Z79.82 Long term (current) use of aspirin; Z79.02 Long term (current) use of antithrombotics/antiplatelets; Z20.828 Contact with and (suspected) exposure to other viral communicable diseases
CPT/HCPCS: 36415; 74177; 80053; 83605; 83690; 83735; 85025; 96374; 96375; 99284; J2270; J2405; Q9967; U0002; 99285

== ENCOUNTER 2020-10-08 20:53 | Emergency (ER) | payer MEDICARE, BC ==
[2020-10-08] MEDS ORDERED: Ondansetron 4 MG/2 ML SDV ONE (20:55)
[2020-10-08] MEDS ORDERED: Sodium Chloride 0.9% 10 ML Syringe FLUSH PRN (21:00)
[2020-10-08] MEDS ORDERED: Sodium Chloride 0.9% 1,000 ML IV ONE (21:00)
[2020-10-08] MEDS ORDERED: Ondansetron 4 MG/2 ML SDV IVPUSH ONE (21:00)
[2020-10-08] MEDS ORDERED: Sodium Chloride 0.9% 2.5 ML Syringe FLUSH PRN (21:00)
[2020-10-08 21:06] VITALS: BP 133/107
[2020-10-08] MEDS ORDERED: Lidocaine 2% Viscous Solution 15 ML Cup ONE ×2 (21:21→22:20)
[2020-10-08 21:31] LABS: BLOOD UREA NITROGEN,BUN 44 mg/dL (7.0-18.0); CARBON DIOXIDE,CO2 23.3 mmol/L (21.0-32.0); CHLORIDE,CL 93 mmol/L (98-107); GLUCOSE RANDOM 254 mg/dL (74-106); LIPASE 1105 U/L (73-393); POTASSIUM,K 4.2 mmol/L (3.5-5.1); SODIUM,NA 136 mmol/L (136-148)
[2020-10-08] MEDS ORDERED: Lidocaine 2% Viscous Solution 15 ML Cup PO ONE ×2 (21:43→22:20)
--- NOTE | 2020-10-08 22:13 | CR ---
INDICATION: Nausea, vomiting, hypoxia, nasogastric tube placement TECHNIQUE: Chest radiograph 1 view COMPARISON: 04/26/2020 FINDINGS: Mediastinum: Previous median sternotomy and coronary artery bypass grafting (CABG) noted. The heart silhouette is normal in size and morphology. NG tube is present in the stomach with the tip coiled and directed towards the GE junction. Lung: Small lung volumes are present mild atelectasis seen in lung base. There is a stable right perihilar granuloma present measuring 7 mm. The right apex is partially excluded. No sign of pleural effusion seen. No pneumothorax is identified. Bone and Soft tissue: Unremarkable for age. IMPRESSIONS: 1. Small lung volumes are present mild atelectasis seen in lung base. 2. NG tube is present in the stomach with the tip coiled and directed towards the GE junction. Dictated by Elio Vargas MD @ 10/08/2020 10:12:48 PM Dictated by: Elio Vargas MD @ 10/08/2020 22:12:50 (Electronically Signed)
--- NOTE | 2020-10-08 22:36 | CT ---
INDICATION: Nausea and vomiting TECHNIQUE: CT abdomen and pelvis without contrast. COMPARISON: June 29, 2020 FINDINGS: Lower chest: Calcified granuloma in the right upper lobe. There is some patchy infiltrate in the lingula and left lower lobe. There is some compressive atelectasis in the left lower lobe from elevation of left hemidiaphragm. Cardiomegaly. Coronary artery calcifications. Status post median sternotomy. Liver: 1.6 cm cyst at the hepatic dome. Spleen: Unremarkable. Pancreas: Unremarkable. Gallbladder and bile ducts: Unremarkable. Adrenal glands: Unremarkable. Kidneys: 1.2 cm lesion on the posterior aspect of the left kidney measuring 82 Hounsfield units in density. GI tract: A gastric tube tip terminates at the gastric fundus. Left lower quadrant colostomy. Multiple loops of dilated, fluid-filled small bowel measuring up to 3.9 cm. There is a fluid-filled loop of small bowel within a left inguinal hernia. It is difficult to determine if this is the site of transition as no decompressed distal small bowel loops are clearly identified. Vascular structures: Moderate atherosclerotic calcification. Lymph nodes: Unremarkable. Miscellaneous: Unremarkable. No free air or significant free fluid. Pelvic Organs: Unremarkable. Bones: Unremarkable for age. IMPRESSION: Small-bowel obstruction. There is a small-bowel loop in a left inguinal hernia but it is difficult to determine if this is a site of transition as noted decompressed distal small bowel loops are clearly identified. Coronary artery disease. Patchy infiltrate in the lingula and left lower lobe concerning for infection. There is also some compressive atelectasis in the left lower lobe. Indeterminate left renal lesion. Consider renal CT for further characterization. Left lower quadrant colostomy. Please note that all CT scans at this facility use dose modulation, iterative reconstruction, and/or weight-based dosing when appropriate to reduce radiation dose to as low as reasonably achievable. Dictated by Itzel Montague MD @ Oct 08 2020 10:09PM Signed by Dr. Itzel Montague @ Oct 08 2020 10:34PM
[2020-10-08] MEDS ORDERED: Sodium Chloride 0.9% 1,000 ML IV SCH (22:45)
--- NOTE | 2020-10-08 23:02 | EDM.PDOC ---
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 Patient does have a history significant for Parkinson's disease with visual hallucinations but at baseline is able to converse and is generally alert awake and oriented x3. Upon arrival to the ED, patient was noted by EMS to be hypoxic on room air but responded well to 100% nonrebreather. No IV was obtained prior to arrival. Patient's blood pressure was noted to be 55 by palp. No recent fevers, shakes, chills, no change in stool output, no cough, no chest pain. Patient is only complaining of abdominal discomfort at this time. Patient reports that he did eat dinner earlier today and has been vomiting up chunks of his dinner since. Review of systems: As per history of present illness and below otherwise all systems reviewed and negative. Past medical history: As per history of present illness and as reviewed below otherwise noncontributory. Surgical history: As per history of present illness and as reviewed below otherwise noncontributory. Social history: No reported history of drug or alcohol abuse. Family history: As per history of present illness and as reviewed below otherwise noncontributory. Physical exam: Constitutional: Patient is oriented to person, place, and time. Appears well- developed and well-nourished. No distress. HEENT: Moist mucous membranes Head: Normocephalic and atraumatic Eyes: Right eye exhibits no discharge. Left eye exhibits no discharge. No scleral icterus Neck: Normal range of motion. No tracheal deviation present. Cardiovascular: Normal rate and regular rhythm. Pulmonary: Effort normal, no respiratory distress. Abd: Firm, distended, no rebound/guarding, no psoas or obturator signs, no tenderness at Mcberney's point, no Oconnell's sign, colostomy bag in place. Pt does not present with an exam that would be consistent with an acute surgical abdomen at this time. Patient has diffuse tenderness throughout. Musculoskeletal: Normal range of motion Neurologic: Alert and oriented to person, place and time. Patient is extremely soft-spoken and hard of hearing. Patient was able to relay to me today's month and year, he has recognized his niece who he has not seen in quite some time, he knows his name, he knows he is in the ER, he knows that he lives at [place]. : Lauren catheter attempted and unclear if successful. No urinary output has been obtained. It is unclear whether or not this is secondary to poor placement versus his acute renal failure. We will remove the catheter as at this time, U TI appears to be less likely to cause and his CT scan does not reveal a moderately distended gallbladder. Patient does have an easily reducible left inguinal hernia noted on examination. It does not appear to be incarcerated or strangulated. Skin: Harrell[place], warm and dry. Psychiatric: Flat affect Nursing note and vital signs have been reviewed This patient was seen and evaluated during the 2019 SARS-CoV-2 novel coronavirus pandemic period. Community viral transmission is ongoing at time of this encounter and the emergency department is operating under pandemic response procedures. Diagnostics: CT the abdomen pelvis: 1. Small bowel obstruction. There is a small bowel loop and a left inguinal hernia but it is difficult to determine if this is a site of transition is noted decompressed distal small bowel loops are clearly identified.(Of note, on clinical exam, patient does have a left inguinal hernia that is easily reducible. Unlikely that this is the cause of the small bowel obstruction.) 2. Patchy infiltrate in the lingula and left lower lobe concerning for infection. There is also some compressive atelectasis in the left lower lobe. (Of note, patient had multiple episodes of emesis and concern for aspiration pneumonia is extremely high on the list. Patient has been started on Zosyn empirically.) Patient's labs were significant for a markedly elevated WBC count with a left shift. Patient's troponin is elevated 0. 097. Patient's lipase is elevated at approximately 1100. Patient's BUN and creatinine are elevated with a BUN of 44 and 3.1. This is new for the patient is it appears at his baseline creatinine here in June was 0.7. Patient has a lactic acid level of 8. EKG: As interpreted by ER physician: Anuj: Nonspecific ST-T wave abnormalities Normal axis No evidence of ST elevation TN Atrial fibrillation with a rate of 78 Therapeutics: NG tube placed by ER MD without difficulty. Approximate 1.5 L of bilious material has been obtained with some relief in patient's discomfort. Zofran 4 mg IV NSS wide open x1 L followed by NSS at 100 mL's per hour Assessment and plan: Is an 85-year-old gentleman with a history significant for Parkinson's, sigmoid volvulus requiring bowel resection who is status post colostomy bag in [facility] back in July 2020. Patient has multiple comorbidities. Patient presents to the ER today secondary to small bowel obstruction with unclear transition point. Patient is status post surgery so adhesions are highly likely in the list. Patient does have a history of a right inguinal large bowel incarcerated hernia however at this time, no hernia is appreciable. Patient does have an elevated lactic acid level, elevated WBC count with a significant left shift, chest x-ray that is consistent with possible lingular and left lower lobe infiltrates I have had a long discussion with the patient's prior workers compensation attorney, his sister regarding patient's prognosis and possible need for surgery. At this time, the patient's sister feels that the patient is competent to make decisions on his own. Patient is able to answer questions appropriately but he does have difficult time communicating secondary to an extremely low voice and difficult to understand him. After an extremely long conversation utilizing his sister and myself it appears that the patient does not wish to be placed on comfort care only and is wishing for surgery if it could ultimately result in prolonging his life. He is requesting that we transfer him to [facility] where he had his prior surgery. I have discussed the case with Dr. Dee at [facility] and he has agreed to assist us with transfer this patient and have surgical consultation. Critical Care: The high probability of sudden, clinically significant deterioration in the patient's condition required the highest level of my preparedness to intervene urgently. The services I provided to this patient were to treat and/or prevent clinically significant deterioration. Services included the following: chart data review, reviewing nursing notes and/or old charts, documentation time, media consultant outside sales collaboration regarding findings and treatment options, medication orders and management, direct patient care, vital sign assessments and ordering, interpreting and reviewing diagnostic studies/lab tests. Aggregate critical care time includes only time during which I was engaged inwork directly related to the patient's care, as described above, whether at the bedside or elsewhere in the Emergency Department. It did not include time spent performing other reported procedures or the services of residents, students, nurses or physician assistants. Critical Care Time: 35 minutes Patient does have signs symptoms concerning for sepsis given his elevated WBC co unt, elevated lactic acid level, pneumonia on x-ray, patient has been started on Zosyn. Patient has been ordered for 30 cc/kg of NSS. Patient has received 2 L in the ED already. Patient weighs 57 kg which would equate to approximately 1.8 L of NSS. Definitive disposition and diagnosis as appropriate pending reevaluation and review of above. - Related Data Allergies Allergy/AdvReac Type Severity Reaction Status Date / Time atorvastatin Allergy Other Verified 10/08/20 21:01 fluticasone [From Flonase] Allergy Other Verified 10/08/20 21:01 fluvastatin Allergy Other Verified 10/08/20 21:01 niacin Allergy Muscle Verified 10/08/20 21:01 Weakness simvastatin Allergy Chest Pain Verified 10/08/20 21:01 tamsulosin Allergy Other Verified 10/08/20 21:01 Home Meds: Home Meds Latanoprost [Xalatan 0.005% Ophth Soln] 1 drop EYEBOTH BEDTIME 09/26/16 [History] Lisinopril 40 mg PO DAILY 09/26/16 [History] Metoprolol Tartrate 12.5 mg PO BID 09/26/16 [History] Multivitamin [Multivitamins] 1 each PO DAILY 09/26/16 [History] Nitroglycerin 9 mg PO Q12HR 09/26/16 [History] Lovastatin 40 mg PO BEDTIME 09/28/16 [History] Acetaminophen [Pain Reliever] 650 mg PO Q4H PRN 11/22/16 [History] Aspirin [Ecotrin EC] 81 mg PO DAILY 11/22/16 [History] Calcium Carbonate/Vitamin D3 [Calcium 600 + Vit D Tablet] 1 tab PO DAILY 11/22/16 [History] Levothyroxine 25 mcg PO ACBREAKFAST 11/22/16 [History] Carbamide Peroxide [Debrox] 1 drop EARBOTH ASDIRECTED PRN 06/29/20 [History] Clopidogrel Bisulfate [Plavix] 75 mg PO DAILY 06/29/20 [History] Carbamide Peroxide [Debrox] 3 drop EARBOTH DAILY 10/08/20 [History] Docusate Sodium 100 mg PO BID 10/08/20 [History] Donepezil HCl 10 mg PO DAILY 10/08/20 [History] Finasteride 5 mg PO DAILY 10/08/20 [History] Pimavanserin Tartrate [Nuplazid] 34 mg PO DAILY 10/08/20 [History] amLODIPine Besylate [Norvasc] 2.5 mg PO DAILY 10/08/20 [History] polyethylene glycoL 3350 [MiraLAX] 17 gm PO DAILY 10/08/20 [History] Past Medical History HEENT History: Reports: Glaucoma Cardiovascular History: Reports: Hypertension, Stents Respiratory History: Reports: None Gastrointestinal History: Reports: Chronic Constipation, Other (See Below) Other Gastrointestinal History: bowel obstruction Genitourinary History: Reports: Prostate Disorder Musculoskeletal History: Reports: None Neurological History: Reports: Other (See Below) Other Neuro History: Confusion Psychiatric History: Reports: Anxiety, Depression Endocrine/Metabolic History: Reports: Hypothyroidism Insulin Pump [employer] Assistant: None Hematologic History: Reports: None Immunologic History: Reports: None Oncologic (Cancer) History: Reports: Prostate Dermatologic History: Reports: None - Infectious Disease History Infectious Disease History: Reports: Chicken Pox, Measles, Mumps - Past Surgical History Head Surgeries/Procedures: Reports: None Cardiovascular Surgical History: Reports: Coronary Artery Bypass GI Surgical History: Reports: Colostomy Social & Family History - Family History Family Medical History: Unobtainable - Tobacco Use Tobacco Use Status *Q: Never Tobacco User - Caffeine Use Caffeine Use: Reports: None - Recreational Drug Use Recreational Drug Use: No ED ROS GENERAL - Review of Systems Review Of Systems: See Below ED EXAM, GENERAL - Physical Exam Exam: See Below #1 Interpretation EKG Interpretation Comments: EKG: As interpreted by ER physician: Anuj: Nonspecific ST-T wave abnormalities Normal axis No evidence of ST elevation TN Atrial fibrillation with a rate of 78 Course - Vital Signs Last Recorded V/S: Last Vital Signs Temp 96.8 F L 10/08/20 20:55 Pulse 108 H 10/08/20 20:55 Resp 24 H 10/08/20 20:55 BP 133/107 H 10/08/20 20:55 Pulse Ox 76 L 10/08/20 20:55 - Orders/Labs/Meds Orders: Active Orders 24 hr Category Date Time Status Cardiac Monitoring [RC] . DIRECTED Care 10/08/20 21:00 Active CORONAVIRUS COVID-19 TIFFANIE [MOLEC] Stat Lab 10/08/20 22:43 Received CULTURE BLOOD [BC] Stat Lab 10/08/20 21:12 Results CULTURE BLOOD [BC] Stat Lab 10/08/20 22:30 Results UA W/MANISH RFLX IF INDICATED [URIN] Stat Lab 10/08/20 21:01 Ordered Piperacillin/Tazobactam [Piperacil-Tazobact] 4.5 gm Med 10/08/20 23:04 Ordered Sodium Chloride 0.9% [Normal Saline] 100 ml IV ONETIME Sodium Chloride 0.9% [Normal Saline] 1,000 ml Med 10/08/20 22:45 Active IV ASDIRECTED Sodium Chloride 0.9% [Saline Flush] Med 10/08/20 21:00 Active 10 ml FLUSH ASDIRECTED PRN Sodium Chloride 0.9% [Saline Flush] Med 10/08/20 21:00 Active 2.5 ml FLUSH ASDIRECTED PRN Blood Culture x2 Reflex Set [OM.PC] Stat Oth 10/08/20 22:20 Ordered Saline Lock Insert [OM.PC] Stat Oth 10/08/20 21:00 Ordered Medication Orders Sodium Chloride (Normal Saline) 1,000 mls @ 125 mls/hr IV ASDIRECTED REINALDO Last Admin: 10/08/20 22:53 Dose: 125 mls/hr Documented by: KARISSA Piperacillin Sod/Tazobactam (Sod 4.5 gm/ Sodium Chloride) 100 mls @ 100 mls/hr IV ONETIME ONE Stop: 10/09/20 00:03 Sodium Chloride (Saline Flush) 10 ml FLUSH ASDIRECTED PRN PRN Reason: Keep Vein Open Last Admin: 10/08/20 21:07 Dose: 10 ml Documented by: SYEDA Sodium Chloride (Saline Flush) 2.5 ml FLUSH ASDIRECTED PRN PRN Reason: Keep Vein Open Last Admin: 10/08/20 21:07 Dose: 2.5 ml Documented by: SYEDA Labs: Laboratory Tests 10/08/20 10/08/20 10/08/20 Range/Units 20:58 20:58 21:12 WBC 20.82 H (4.0-11.0) K/uL RBC 4.97 (4.50-5.90) M/uL Hgb 15.0 (13.0-17.0) g/dL Hct 46.5 (38.0-50.0) % MCV 93.6 (80.0-98.0) fL MCH 30.2 (27.0-32.0) pg MCHC 32.3 (31.0-37.0) g/dL RDW Std Deviation 43.2 (28.0-62.0) fl RDW Coeff of Cortney 13 (11.0-15.0) % Plt Count 257 (150-400) K/uL MPV 9.90 (7.40-12.00) fL Neut % (Auto) 91.8 H (48.0-80.0) % Lymph % (Auto) 4.9 L (16.0-40.0) % Wolfe % (Auto) 3.2 (0.0-15.0) % Eos % (Auto) 0.0 (0.0-7.0) % Baso % (Auto) 0.1 (0.0-1.5) % Neut # (Auto) 19.1 H (1.4-5.7) K/uL Lymph # (Auto) 1.0 (0.6-2.4) K/uL Wolfe # (Auto) 0.7 (0.0-0.8) K/uL Eos # (Auto) 0.0 (0.0-0.7) K/uL Baso # (Auto) 0.0 (0.0-0.1) K/uL Nucleated RBC % 0.0 /100WBC Nucleated RBCs # 0 K/uL Lactate 8.2 H* (0.20-2.00) mmol/L Sodium 136 (136-148) mmol/L Potassium 4.2 (3.5-5.1) mmol/L Chloride 93 L (98-107) mmol/L Carbon Dioxide 23.3 (21.0-32.0) mmol/L BUN 44 H (7.0-18.0) mg/dL Creatinine 3.1 H (0.8-1.3) mg/dL Est Cr Clr Drug Dosing TNP Estimated GFR (MDRD) 19.3 ml/min Glucose 254 H (74-106) mg/dL Calcium 11.3 H (8.5-10.1) mg/dL Magnesium 3.0 H (1.8-2.4) mg/dL Total Bilirubin 0.9 (0.2-1.0) mg/dL AST 24 (15-37) IU/L ALT 26 (14-63) IU/L Alkaline Phosphatase 126 H (46-116) U/L Troponin I 0.097 H* (0.000-0.056) ng/mL Total Protein 9.3 H (6.4-8.2) g/dL Albumin 4.8 (3.4-5.0) g/dL Globulin 4.5 H (2.6-4.0) g/dL Albumin/Globulin Ratio 1.1 (0.9-1.6) Lipase 1105 H (73-393) U/L Meds: Medications Generic Name Dose Route Start Last Admin Trade Name Freq PRN Reason Stop Dose Admin Sodium Chloride 1,000 mls @ 125 mls/hr 10/08/20 22:45 10/08/20 22:53 Normal Saline IV 125 mls/hr ASDIRECTED REINALDO Administration Piperacillin Sod/Tazobactam 100 mls @ 100 mls/hr 10/08/20 23:04 Sod 4.5 gm/ Sodium Chloride IV 10/09/20 00:03 ONETIME ONE Sodium Chloride 10 ml 10/08/20 21:00 10/08/20 21:07 Saline Flush FLUSH 10 ml ASDIRECTED PRN Administration Keep Vein Open Sodium Chloride 2.5 ml 10/08/20 21:00 10/08/20 21:07 Saline Flush FLUSH 2.5 ml ASDIRECTED PRN Administration Keep Vein Open Discontinued Medications Generic Name Dose Route Start Last Admin Trade Name Freq PRN Reason Stop Dose Admin Sodium Chloride 1,000 mls @ 999 mls/hr 10/08/20 21:00 10/08/20 21:07 Normal Saline IV 10/08/20 22:00 999 mls/hr .Bolus ONE Administration Lidocaine HCl Confirm 10/08/20 21:21 10/08/20 21:43 Xylocaine 2% Viscous Administered 10/08/20 21:22 Not Given Dose 15 ml .ROUTE .STK-MED ONE Lidocaine HCl 15 ml 10/08/20 21:43 10/08/20 21:21 Xylocaine 2% Viscous PO 10/08/20 21:44 15 ml ONETIME ONE Administration Lidocaine HCl 15 ml 10/08/20 22:20 10/08/20 22:42 Xylocaine 2% Viscous PO 10/08/20 22:21 15 ml ONETIME ONE Administration Lidocaine HCl Confirm 10/08/20 22:20 10/08/20 22:28 Xylocaine 2% Viscous Administered 10/08/20 22:21 Not Given Dose 15 ml .ROUTE .STK-MED ONE Ondansetron HCl Confirm 10/08/20 20:55 10/08/20 21:08 Zofran Administered 10/08/20 20:56 Not Given Dose 4 mg .ROUTE .STK-MED ONE Ondansetron HCl 4 mg 10/08/20 21:00 10/08/20 21:07 Zofran IVPUSH 10/08/20 21:01 4 mg ONETIME ONE Administration Departure - Departure Time of Disposition: 23:22 Disposition: DC/Tfer to Acute Hospital 02 Condition: Fair Clinical Impression: Non-STEMI (non-ST elevated myocardial infarction), Small bowel obstruction, Pancreatitis, Acute renal failure, Sepsis, Aspiration pneumonia, Inguinal hernia, Elevated troponin, Parkinsons disease - Discharge Information Referrals: Tomas Srinivasan [Primary Care Provider] - Forms: ED Department Discharge Sepsis Event Note (ED) - Evaluation Sepsis Screening Result: No Definite Risk - Focused Exam Vital Signs: Vital Signs Temp Pulse Resp BP Pulse Ox 10/08/20 20:55 96.8 F L 108 H 24 H 133/107 H 76 L - My Orders Last 24 Hours: My Active Orders 10/08/20 21:00 Cardiac Monitoring [RC] . DIRECTED Sodium Chloride 0.9% [Saline Flush] 10 ml FLUSH ASDIRECTED PRN Sodium Chloride 0.9% [Saline Flush] 2.5 ml FLUSH ASDIRECTED PRN Saline Lock Insert [OM.PC] Stat 10/08/20 21:01 UA W/MANISH RFLX IF INDICATED [URIN] Stat 10/08/20 21:12 CULTURE BLOOD [BC] Stat 10/08/20 22:20 Blood Culture x2 Reflex Set [OM.PC] Stat 10/08/20 22:30 CULTURE BLOOD [BC] Stat 10/08/20 22:43 CORONAVIRUS COVID-19 TIFFANIE [MOLEC] Stat 10/08/20 22:45 Sodium Chloride 0.9% [Normal Saline] 1,000 ml IV ASDIRECTED 10/08/20 23:04 Piperacillin/Tazobactam [Piperacil-Tazobact] 4.5 gm Sodium Chloride 0.9% [Normal Saline] 100 ml IV ONETIME - Assessment/Plan Last 24 Hours: My Active Orders 10/08/20 21:00 Cardiac Monitoring [RC] . DIRECTED Sodium Chloride 0.9% [Saline Flush] 10 ml FLUSH ASDIRECTED PRN Sodium Chloride 0.9% [Saline Flush] 2.5 ml FLUSH ASDIRECTED PRN Saline Lock Insert [OM.PC] Stat 10/08/20 21:01 UA W/MANISH RFLX IF INDICATED [URIN] Stat 10/08/20 21:12 CULTURE BLOOD [BC] Stat 10/08/20 22:20 Blood Culture x2 Reflex Set [OM.PC] Stat 10/08/20 22:30 CULTURE BLOOD [BC] Stat 10/08/20 22:43 CORONAVIRUS COVID-19 TIFFANIE [MOLEC] Stat 10/08/20 22:45 Sodium Chloride 0.9% [Normal Saline] 1,000 ml IV ASDIRECTED 10/08/20 23:04 Piperacillin/Tazobactam [Piperacil-Tazobact] 4.5 gm Sodium Chloride 0.9% [Normal Saline] 100 ml IV ONETIME
[2020-10-08] MEDS ORDERED: Piperacillin/Tazobactam 4.5 GM in Sodium Chloride 0.9% 100 ML IV ONE (23:04)
[2020-10-08] MEDS ORDERED: Piperacillin/Tazobactam 4.5 GM AdvVial ONE (23:22)
[2020-10-08] MEDS ORDERED: Sodium Chloride 0.9% 100 ML ONE (23:23)
[2020-10-09 00:52] VITALS: PULSE 73
== END 2020-10-09 01:26 ==
LOC: MW.ED 20:53
DX: A41.9 Sepsis, unspecified organism (principal); J69.0 Pneumonitis due to inhalation of food and vomit; N17.9 Acute kidney failure, unspecified; I21.4 Non-ST elevation (NSTEMI) myocardial infarction; K85.90 Acute pancreatitis without necrosis or infection, unspecified; K56.609 Unspecified intestinal obstruction, unspecified as to partial versus complete obstruction; K40.90 Unilateral inguinal hernia, without obstruction or gangrene, not specified as recurrent; R79.89 Other specified abnormal findings of blood chemistry; G20 Parkinson's disease; R74.8 Abnormal levels of other serum enzymes; I48.91 Unspecified atrial fibrillation; I10 Essential (primary) hypertension; E03.9 Hypothyroidism, unspecified; Z79.02 Long term (current) use of antithrombotics/antiplatelets; Z79.82 Long term (current) use of aspirin; Z88.8 Allergy status to other drugs, medicaments and biological substances; Z88.1 Allergy status to other antibiotic agents; Z79.899 Other long term (current) drug therapy; Z20.822 Contact with and (suspected) exposure to COVID-19
CPT/HCPCS: 36415; 43752; 51702; 71045; 74176; 80053; 83605; 83690; 83735; 84484; 85025; 87040; 93005; 96365; 96366; 96375; 99285; A9270; J2405; J2543; J7030; J7050; U0002; 93010; 99291